=== PATIENT | male | born 1990 | race Caucasian/White ===

== ENCOUNTER 2025-01-13 07:25 | Emergency (ER) | payer BC ==
[~2025-01-13] VITALS: Ht 177.8 cm; Wt 106.4 kg
[2025-01-13 08:16] LABS: MEAN PLATELET VOLUME 11.0 FL (7.4-10.4); RED CELL DISTRIBUTION WIDTH 17.6 % (11.5-14.5)
[2025-01-13 08:34] LABS: CREATININE 0.61 MG/DL (0.60-1.10); TOTAL CARBON DIOXIDE 26.3 MMOL/L (24-32); eCRCL 173 ML/MIN; eGFR > 90 ML/MIN
[2025-01-13 08:44] LABS: ETHANOL < 10 MG/DL (<10)
--- NOTE | 2025-01-13 09:32 | Physician Documentation ---
History of Present Illness General Chief Complaint: Bloody Emesis Stated Complaint: GI BLEEDING Time Seen by MD: 09:18 Mode of Arrival: Ambulatory History of Present Illness Initial Comments The patient is a 34-year-old male with no significant past medical history who has had 3-4 episodes of hematemesis that began yesterday evening. He admits to having been a heavy drinker but quit about a month ago when he had his last drink. He has no prior history of hematemesis or GI problems. Patient's last bowel movement was yesterday morning and quite small. No melena. Medication Reconciliation Allergies: Coded Allergies: No Known Allergies (Unverified , 01/13/25) Review of Systems ROS Constitutional: Denies chills, fatigue, fever, weight gain or weight loss. HEENT: Denies hearing loss, sinus pressure or visual changes. Respiratory: Denies cough, shortness of breath or wheezing. Cardiovascular: Denies chest pain, pain while walking (claudication), edema or palpitations. Gastrointestinal: Hematemesis beginning yesterday evening Genitourinary: Denies painful urination (dysuria), excessive amount of urine (polyuria) or urinary frequency. Metabolic/Endocrine: Denies cold intolerance, heat intolerance, excessive thirst (polydipsia) or excessive hunger (polyphagia). Neurological: Denies dizziness, extremity numbness, extremity weakness, headaches, seizures or tremors. Psychiatric: Denies anxiety or depression. Integumentary: Denies breast discharge, breast lump, hives, mole change(s), rash or skin lesion. Musculoskeletal: Denies back pain, joint pain, joint swelling or neck pain. Hematologic: Denies easily bleeding, easily bruises, lymphedema or issues with blood clots. Immunologic: Denies food allergies or seasonal allergies. Physical Exam Physical Exam Vital Signs: Temperature: 97.5, Source: Temporal, Heart Rate: 92, Respiratory Rate: 15, BP: 129/77, Pulse Oximetry: 98, Weight: 106.360 Oxygen Flow Rate: 0 Physical Exam Physical Exam Vitals and nursing note reviewed. Constitutional: General: Patient is awake, alert, oriented x 4 in no acute distress and well appearing. Speech is clear and lucid. Appearance: Normal appearance. Patient is not ill-appearing, toxic-appearing or diaphoretic. HENT: Head: Normocephalic and atraumatic. Mouth/Throat: Mouth: Mucous membranes are moist. Pharynx: Oropharynx is clear. Eyes: General: No scleral icterus. Extraocular Movements: Extraocular movements intact. Pupils: Pupils are equal, round, and reactive to light. Neck: Supple, no Kernig or Brudzinski sign. Cardiovascular: Rate and Rhythm: Normal rate and regular rhythm. Heart sounds: No murmur heard. Pulmonary: Effort: No respiratory distress. Breath sounds: No wheezing, rhonchi or rales. Abdominal: General: There is no distension. Palpations: There is no fluid wave, hepatomegaly or mass. Tenderness: There is no abdominal tenderness. There is no guarding. Musculoskeletal: General: No swelling or deformity. Skin: Coloration: Skin is not jaundiced. Findings: No erythema or rash. Neurological: Mental Status: Patient is alert. Progress Results/Orders Results/Orders Orders - ARACELI LOPEZ MD Normal Saline 100ml... W/Octreotide Inj. (01/13/25 09:40) Ultrasound Of Abdomen (01/13/25 09:40) Ct Abdomen Pelvis (01/13/25 10:58) Normal Saline 1000ml (0.9% Sodium Chlori (01/13/25 13:35) Completed Orders - ARACELI LOPEZ MD Urinalysis, Cult If Indicated (01/13/25 07:37) Cbc/Diff (01/13/25 07:37) Lipase (01/13/25 07:37) CMP (01/13/25 07:37) MG (01/13/25 07:43) Type And Screen (01/13/25 07:43) Ethanol (01/13/25 07:43) Drug Screen, Urine (01/13/25 07:43) Pantoprazole 40mg Iv (Protonix 40mg Iv) (01/13/25 09:39) Octreotide Inj. (Sandostatin Inj.) (01/13/25 09:40) Ultrasound Of Abdomen (01/13/25 09:40) Ct Abdomen Pelvis (01/13/25 10:58) Ondansetron Inj. (Zofran 4mg/2ml Vial) (01/13/25 10:35) Iohexol 300mg/Ml 100ml Inj. (Omnipaque-3 (01/13/25 10:32) Normal Saline 1000ml (0.9% Sodium Chlori (01/13/25 11:10) Cbc/Diff (01/13/25 11:28) Medications Received in ER Medications (Trade) Dose Ordered Sig/Tripp Route PRN Reason Start Time Stop Time Status Last Admin Dose Admin (Protonix 40mg IV) 80 mg ONCE STAT IV 01/13/25 09:39 01/13/25 09:41 DC 01/13/25 10:23 80 MG Octreotide Acetate 500 mcg/ Sodium Chloride 100 ml @ 5 mls/hr Q20H IV 01/13/25 09:40 01/13/25 10:42 5 MLS/HR (SandoSTATIN inj.) 100 mcg ONCE ONCE IV 01/13/25 09:40 01/13/25 09:43 DC 01/13/25 10:23 100 MCG (Zofran 4mg/2ml vial) 8 mg ONCE ONCE IV 01/13/25 10:35 01/13/25 10:36 DC 01/13/25 10:36 8 MG Sodium Chloride 1,000 ml @ 1,000 mls/hr ONCE ONCE IV 01/13/25 11:10 01/13/25 12:09 DC 01/13/25 11:16 1,000 MLS/HR Sodium Chloride 1,000 ml @ 100 mls/hr Q10H IV 01/13/25 13:35 01/13/25 14:29 100 MLS/HR Vital Signs 01/13/25 01/13/25 01/13/25 01/13/25 07:34 09:05 09:11 09:30 Temp 97.5 Pulse 122 92 85 Resp 19 15 15 B/P (MAP) 144/84 129/77 (94) 117/69 Pulse Ox 99 98 O2 Flow Rate 0 01/13/25 01/13/25 01/13/25 01/13/25 09:31 09:33 11:18 13:32 Pulse 95 115 99 96 Resp 15 21 B/P (MAP) 128/78 122/77 124/69 (87) 123/69 (87) Pulse Ox 98 97 O2 Flow Rate 0 01/13/25 14:09 Resp 12 B/P (MAP) Laboratory Tests Test 01/13/25 07:56 01/13/25 11:39 01/13/25 12:30 White Blood Count 12.0 H 9.8 Red Blood Count 3.90 L 3.47 L Hemoglobin 12.0 L 10.9 L Hematocrit 36.2 L 31.9 L Mean Corpuscular Volume 92.8 91.9 Mean Corpuscular Hemoglobin 30.9 31.6 H Mean Corpuscular Hemoglobin Concent 33.3 34.3 Red Cell Distribution Width 17.6 H 17.4 H Platelet Count 124 L 96 L Mean Platelet Volume 11.0 H 10.8 H Neutrophils (%) (Auto) 77.4 H 77.9 H Lymphocytes (%) (Auto) 13.8 L 12.4 L Monocytes (%) (Auto) 7.4 8.8 Eosinophils (%) (Auto) 0.6 0.3 Basophils (%) (Auto) 0.8 0.6 Neutrophils # (Auto) 9.3 H 7.6 Lymphocytes # (Auto) 1.7 1.2 Monocytes # (Auto) 0.9 0.9 Eosinophils # (Auto) 0.1 0.0 Basophils # (Auto) 0.1 0.1 CBC Comment Sodium Level 134 L Potassium Level 4.3 Chloride Level 100 Carbon Dioxide Level 26.3 Anion Gap 8 Blood Urea Nitrogen 12 Creatinine 0.61 Estimated GFR/1.73 m2 > 90 BUN/Creatinine Ratio 19.7 Glucose Level 117 H Calcium Level 8.6 Magnesium Level 1.8 Total Bilirubin 9.2 H Aspartate Amino Transf (AST/SGOT) 120 H Alanine Aminotransferase (ALT/SGPT) 36 Alkaline Phosphatase 220 H Total Protein 8.1 Albumin 2.3 L Globulin 5.8 H Albumin/Globulin Ratio 0.4 L Lipase 116 H Chemistry Comments Ethyl Alcohol Level < 10 Urine Specimen Description Urinal Urine Color Dark yellow Urine Clarity Clear Urine pH 6.5 Urine Specific Hyndman <=1.005 Urine Protein Negative Urine Glucose (UA) 100 H Urine Ketones 15 H Urine Occult Blood Negative Urine Nitrite Negative Urine Bilirubin Moderate Urine Urobilinogen 2.0 H Urine Leukocyte Esterase Negative Urine Culture Indicated Not ind Volume Urine Centrifuged 10 ml Urine Comment Urine Opiates Screen Negative Urine Methadone Screen Negative Urine Fentanyl Screen Negative Urine Barbiturates Screen Negative Urine Phencyclidine Screen Negative Urine Amphetamines Screen Negative Urine Benzodiazepines Screen Negative Urine Cocaine Screen Negative Urine Cannabinoids Screen Negative Drug Screen Comment Medical Decision Making Findings This 34-year-old male presented with hematemesis, about five episodes since last night, and positive orthostatic changes (increase in heart rate but no drop in blood pressure). He admits to prior heavy drinking and has a bilirubin of 9.2. I gave him Protonix 80 mg and in an abundance of caution started him on octreotide with and octreotide drip. He requires GI services, which we do not have here today. He has been accepted for transfer to [facility] by Dr. Norris. He remains hemodynamically stable at this time. Departure Disposition: 02 SHORT TERM HOSPITAL Impression: Primary Impression: Hematemesis Condition: Stable Referrals: NO PRIMARY CARE PROVIDER (PCP) Critical Care Note Critical Care Note Due to the high probability of hemodynamic failure required my full attention for about 40 minutes while the patient was critical. I provided critical care services which included medication orders, frequent re-evaluations, response to treatment, renewing test results, and discussing case with various consultants. Unless specifically stated all procedures, tests, and medications were performed/interpreted under the direct supervision of the emergency department physician. Signature Scribe Signature: . Attestation: . ARACELI LOPEZ MD Jan 13, 2025 09:32
[2025-01-13] MEDS: octreotide 100mcg/1 ml ampule IV ONE (10:23)
--- NOTE | 2025-01-13 10:30 | RADIOLOGY REPORT ---
INDICATION: RUQ pain TECHNIQUE: Multiple real-time sonographic images of the right upper abdomen were obtained. COMPARISON: None FINDINGS: The liver is increased in echogenicity. The liver measures 22 cm. No intrahepatic biliary ductal dilatation is noted. The gallbladder wall measures 0.3 cm and is unremarkable. No gallstones or sludge is seen. The common duct measures 0.3 cm and is unremarkable. No pericholecystic fluid is noted. The right kidney measures 12.3 cm. No hydronephrosis. The pancreas is not well visualized due to obscuration from bowel gas. The visualized portions of the IVC and aorta are grossly unremarkable. IMPRESSION: Hepatic steatosis and hepatomegaly.
[2025-01-13] MEDS ORDERED: iohexol 300mg/ml 100ml inj. ONE (10:32)
[2025-01-13] MEDS: ondansetron/PF 4mg/2ml inj IV ONE (10:36)
[2025-01-13] MEDS: octreotide inj. 500 MCG in normal saline 100ml IV soln 97.5 ML IV SCH (10:42)
[2025-01-13] MEDS: normal saline 1000ml 1,000 ML IV ONE (11:16)
[2025-01-13 11:46] LABS: MEAN PLATELET VOLUME 10.8 FL (7.4-10.4); RED CELL DISTRIBUTION WIDTH 17.4 % (11.5-14.5)
--- NOTE | 2025-01-13 11:55 | RADIOLOGY REPORT ---
EXAM: CT CT ABDOMEN PELVIS W/ IV CONTRAST HISTORY: GI bleeding COMPARISON: Right upper quadrant ultrasound examination dated 01/13/2025. TECHNIQUE: Helical CT images of the abdomen and pelvis were performed with 100 mL omnipaque 300 IV contrast. Sagittal and coronal reformatted images were obtained. This CT exam was performed using 1 or more of the following dose reduction techniques: Automated exposure control, adjustment of the mA and/or kv according to patient size, or the use of iterative reconstruction techniques. Radiation Dose Information: CT Dose: CTDI volume is 25.73 mGy. Dose-length product is 3112.12 mGy*cm FINDINGS: CT abdomen: The lung bases are clear. The heart is not enlarged. There is sludge in the dependent portion of the gallbladder. The spleen measures 17 cm longitudinal. The liver measures 23 cm longitudinal and may be diffusely fatty density. There is a left upper quadrant splenule. The pancreas, kidneys, and adrenal glands are unremarkable. No abdominal aortic aneurysm or dissection. The left renal vein is circumaortic. CT pelvis: No abnormal bowel dilatation or free air. There is low volume free fluid in the pelvis. No evidence of active extravasation of IV contrast into the stomach, small intestine, or large intestine. The appendix and urinary bladder are unremarkable. There is subtle thickening and nodularity to the fascial reflexion between the peritoneum and retroperitoneum bilaterally. IMPRESSION: 1. Hepatosplenomegaly and possible hepatic steatosis. 2. Sludge in the gallbladder, without visualization of gallstones. 3. Low volume free fluid in the pelvis. Additionally, there is thickening and nodularity of the posterior peritoneal reflection along the anterior margin of the retroperitoneum which may be due to fluid, inflammation, or other etiology. 4. No evidence of active GI hemorrhage. 5. No evidence of bowel obstruction, acute appendicitis, or other acute process in the abdomen or pelvis.
[2025-01-13 13:20] LABS: URINE AMPHETAMINE SCREEN NEGATIVE (Neg); URINE BARBITUATE SCREEN NEGATIVE (Neg); URINE BENZODIAZEPINES SCREEN NEGATIVE (Neg); URINE CANNABINOID SCREEN NEGATIVE (Neg); URINE COCAINE SCREEN NEGATIVE (Neg); URINE METHADONE SCREEN NEGATIVE (Neg); URINE OPIATE SCREEN NEGATIVE (Neg); URINE PHENCYCLIDINE SCREEN NEGATIVE (Neg)
[2025-01-13 13:21] LABS: LEUKOCYTE ESTERASE ,URINE NEGATIVE (Neg); NITRITES, URINE NEGATIVE (Neg); OCCULT BLOOD,URINE NEGATIVE (Neg)
[2025-01-13 13:26] LABS: UA COLLECTION TYPE URINAL
[2025-01-13] MEDS: normal saline 1000ml 1,000 ML IV SCH (14:29)
[2025-01-13 20:43] VITALS: BP 140/76; PULSE 100; RESP 18; TEMP 97.5; O2SAT 98
== END 2025-01-13 22:03 | disposition short-term general hospital (02) ==
LOC: ER 07:26
DX: K92.0 Hematemesis (principal); F10.129 Alcohol abuse with intoxication, unspecified; Y90.0 Blood alcohol level of less than 20 mg/100 ml
CPT/HCPCS: 36415; 74177; 76700; 80053; 80305; 80320; 81003; 83690; 83735; 85025; 86885; 86900; 86901; 96365; 96366; 96375; 96376; 99285; J2354; J2405; J2470; J7030; Q9967